=== PATIENT | female | born 1985 | race Caucasian/White ===

== ENCOUNTER → 2016-10-04 | Outpatient (CLI) | payer OTHER ==
--- NOTE | 2016-10-04 15:15 | KCIC ---
PROCEDURE Three-view right foot HISTORY Right foot pain and swelling laterally with bruising after injury 3 days ago. COMPARISON None FINDINGS Oblique fracture of the distal shaft of the 5th metatarsal. No evidence of dislocation. There appears to be some focal sclerotic density at the posterior metaphysis of the tibia, uncertain etiology but without aggressive features. 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 IMPRESSION Oblique minimally displaced fracture of the distal 5th metatarsal shaft. Electronically signed by: Evgeny Haywood MD (Oct 04, 2016 15:14:31)
== END | disposition home or self-care (01) ==
LOC: KCIC 09:45
PROVIDERS: ATTEND Nurse Practitioner Family
DX: S92.351A Displaced fracture of fifth metatarsal bone, right foot, initial encounter for closed fracture (principal); S90.31XA Contusion of right foot, initial encounter; M25.474 Effusion, right foot; X58.XXXA Exposure to other specified factors, initial encounter; Y93.89 Activity, other specified; Y92.89 Other specified places as the place of occurrence of the external cause; Y99.8 Other external cause status; Q66.89 Other specified congenital deformities of feet
CPT/HCPCS: 73630